=== PATIENT | female | born 2005 | race Caucasian/White ===

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

== ENCOUNTER 2024-06-10 17:34 | Emergency (ER) | payer OTHER, SELFPAY ==
--- OUTSIDE RECORDS SUMMARY | 2024-06-10 17:36 | XMS_ITS | Referral Summary ---
Author Organization [facility] Address [address] [place] [address] Phone Care Team Providers Care Trimmer Tailer Name Role Phone Mile Hayes MD Primary Care Provid er Encounters Date Type Department Care Team Description 06/09/2024 10:05 AM SALVAGE REPAIRER - 06/09/2024 11:59 PM SALVAGE REPAIRER Hospital Encounter [facility] Pediatric Pulmonology [facility] [address] [place] [id number] Moderate persistent asthma, uncomplicated Discharge Disposition: Discharge to home or self care 06/09/2024 10:30 AM SALVAGE REPAIRER Office Visit [facility] Pediatric Allergy and Pulmonology [facility] 2nd [place] [address] [place] [phone] Sabine Nova MD Moderate persistent asthma, uncomplicated (Primary Dx); Chronic allergic conjunctivitis; Allergic rhinitis due to dust mite 03/13/2024 Telephone [facility] Pediatric Allergy and Pulmonology [facility] 2nd [place] [address] [place] [phone] Sanjeev Valdez from Last 3 Months Allergies Active Allergy Reactions Criticality Noted Date Comments Penicillins Prednisone Dizziness Low 04/19/2023 Sulfa (Sulfonamide Antibiotics) Azithromycin Dizziness Low 06/09/2024 Took one pill made pt very dizzy, did not complete full 5 day dosage Medications inhalational spacing device spacer 1 inhalation spacer device with adult size mask to use with MDI 1 each 06/03/202 1 Active olopatadine 0.6 % spray,non-aero janelle Give 1 spray 1-2 times daily as needed for congestion 30.5 g 1 2 Active mupirocin (BACTROBAN) 2 % ointment Apply topically 3 (three) times a day as needed (to the finger wound) 22 g 3 Active predniSONE (DELTASONE) 20 mg tabletIndicati ons:Contact Dermatitis Take 3 tablets daily for 3 days then 2 tablets daily for 3 days then 1 tablet daily for 3 days 18 tablet 3 Active Additional Information Patient not taking.Reported on 06/09/2024 montelukast (SINGULAIR) 10 mg tabletIndicati ons:Moderate persistent asthma, uncomplicated, Allergic rhinitis due to dust mite Take 1 tablet (10 mg total) by mouth nightly 30 tablet 11 4 Active triamcinolone (KENALOG) 0.1 % cream Apply topically 2 (two) times a day 4 Active azelastine (ASTELIN) 137 mcg (0.1 %) nasal sprayIndicatio ns:Moderate persistent asthma, uncomplicated, Allergic rhinitis due to dust mite Administer 2 sprays into each nostril daily Use in each nostril as directed 90 mL 3 5 09/08/19 25 Active budesonide-for moteroL (Symbicort) 80-4.5 mcg/actuation inhaler Use 2 puffs once daily and 1-2 puffs every 4 hours as needed max 12 puffs per day. Rinse mouth with water after use. Do not swallow. 6 each 2 5 Active cetirizine (ZyrTEC) 10 mg tablet Take 1 tablet (10 mg total) by mouth daily 90 tablet 2 5 09/08/19 25 Active fluticasone propionate (FLONASE) 50 mcg/actuation nasal sprayIndicatio ns:Moderate persistent asthma, uncomplicated, Allergic rhinitis due to dust mite Administer 2 sprays into each nostril daily 3 each 2 5 Active albuterol HFA (Ventolin HFA) 90 mcg/actuation inhalerIndicat ions:Bronchosp asm Prevention Inhale 2 puffs every 4 (four) hours as needed for wheezing 4 each 2 5 09/08/19 25 Active albuterol HFA (Ventolin HFA) 90 mcg/actuation inhalerIndicat ions:Bronchosp asm Prevention Inhale 2 puffs every 4 (four) hours as needed for wheezing 2 each 1 3 06/10/19 25 Discontin ued(Reord er) budesonide-for moteroL (Symbicort) 80-4.5 mcg/actuation inhaler Use 2 puffs once daily and 1-2 puffs every 4 hours as needed max 12 puffs per day. Rinse mouth with water after use. Do not swallow. 2 each 5 4 06/10/19 25 Discontin ued(Reord er) fluticasone propionate (FLONASE) 50 mcg/actuation nasal sprayIndicatio ns:Moderate persistent asthma, uncomplicated, Allergic rhinitis due to dust mite Administer 2 sprays into each nostril daily 1 each 11 4 06/10/19 25 Discontin ued(Reord er) cetirizine (ZyrTEC) 10 mg tablet Take 1 tablet (10 mg total) by mouth daily 30 tablet 2 4 06/10/19 25 Discontin ued(Reord er) azelastine (ASTELIN) 137 mcg (0.1 %) nasal sprayIndicatio ns:Moderate persistent asthma, uncomplicated, Allergic rhinitis due to dust mite ADMINISTER 2 SPRAYS INTO EACH NOSTRIL DAILY USE IN EACH NOSTRIL DIRECTED 30 mL 11 4 06/10/19 25 Discontin ued(Reord er) Active Problems Problem Noted Date Diagnosed Date Allergic rhinitis due to cats 10/11/2017 Seasonal allergic rhinitis due to pollen 018 Allergic rhinitis due to mold 10/11/2017 Allergic rhinitis due to dust mite 10/11/2017 Allergy to cockroaches 10/11/2017 Moderate persistent asthma, uncomplicated 2017 Moderate persistent asthma without complication 01/20/2017 Eczema 07/22/2016 Dysuria 02/20/2015 Chronic cystitis 02/20/2015 Chronic constipation 02/20/2015 Incomplete emptying of bladder 02/20/2015 Perineal pain 02/20/2015 Chronic allergic conjunctivitis 09/01/2013 Urticaria, unspecified 12/30/2012 Resolved Problems Problem Noted Date Diagnosed Date Resolved Date Mild persistent asthma without complication 10/04/2007 07/19/2018 Hay fever 10/04/2007 08/08/2019 Social History Tobacco Use Types Packs/Day Years Used Date Smoking Tobacco: Never Smokeless Tobacco: Never Tobacco Cessation:Counseling Given: Yes Comments Unknown Sex and Gender Information Value Date Recorded Sex Assigned at Not on file Legal Sex Female 1:37 AM SALVAGE REPAIRER Gender Identity Not on file Sexual Orientation Not on file Last Filed Vital Signs Vital Sign Reading Time Taken Comments Blood Pressure 114/70 06/09/2024 10:33 AM SALVAGE REPAIRER Pulse 81 06/09/2024 10:33 AM SALVAGE REPAIRER Temperature 36.7 C (98.1 F) 06/09/2024 10:33 AM SALVAGE REPAIRER Respiratory Rate 16 06/09/2024 10:3 3 AM SALVAGE REPAIRER Oxygen Saturation 97% 10/15/2023 10: 07 AM CDT Inhaled Oxygen Concentration - - Weight 76.5 kg (168 lb 10.4 oz) 025 10:33 AM SALVAGE REPAIRER Height 164.4 cm (5' 4.72 ) 06/09/2024 1 0:33 AM SALVAGE REPAIRER Body Mass Index 28.31 06/09/2024 10:33 AM SALVAGE REPAIRER Plan of Treatment Not on file Procedures Procedure Name Priority Date/Time Associated Diagnosis Comments PULMONARY FUNCTION TEST (PFT) Routine 06/09/2024 10:27 AM SALVAGE REPAIRER Moderate persistent asthma, uncomplicated from Last 3 Months Results * Pulmonary Function Test - (06/09/2024 10:27 AM SALVAGE REPAIRER) FVC %PRE PRED 109 % [facility] FEV1 %PRE PRED 105 % [facility] BOR91-05% %PRE PRED 84 % [facility] Anatomical Region Laterality Modality PFT 06/09/2024 10:1 9 AM SALVAGE REPAIRER Narrative 06/09/2024 2:18 PM SALVAGE REPAIRER PFT performed at:->[facility] Sabine Nova MD PFT ORDERABLES Final R esult from Last 3 Months Insurance [facility] CMR Care Teams Trimmer Tailer Relationship Specialty Start Date End Date Feldott-Robert, Mile C., MD [address] [facility] [address] PCP - General 07/22/16
--- OUTSIDE RECORDS SUMMARY | 2024-06-10 17:36 | XMS_ITS | Clinical Summary ---
Author Organization [facility] Address [address] [place] [address] Care Team Providers Care Clerical Assistant Name Role Phone Mile Friedman MD Primary Care Provider Allergies Active Allergy Reactions Criticality Noted Date Comments Penicillins Anxiety Low 04/19/2023 Prednisone Dizziness 04/19/2023 Medications AZELASTINE 137 MCG/SPRAY nasal spray ADMINISTER 2 SPRAYS INTO EACH NOSTRIL DAILY USE IN EACH NOSTRIL DIRECTED 3 Active budesonide-form oterol (SYMBICORT) 80-4.5 MCG/ACT inhaler PLEASE SEE ATTACHED FOR DETAILED DIRECTIONS 3 Active cetirizine (ZYRTEC) 5 MG tablet Take 1 tablet (5 mg total) by mouth daily. Active methylPREDNISol one, LUCIAN, (MEDROL DOSEPAK) 4 MG tabletIndicatio ns:Sore throat 6 TABLETS ON DAY ONE, 5 TABLETS DAY TWO, 4 TABLETS DAY THREE, 3 TABLETS DAY FOUR, 2 TABLETS DAY FIVE, AND 1 TABLET DAY SIX. Patient aware of allergy 1 each 4 Active Additional Information Patient not taking.Reported on 03/22/2024 triamcinolone (KENALOG) 0.1 % cream Apply topically 2 (two) times daily. 4 Active fluticasone propionate (FLONASE) 50 MCG/ACT nasal spray 2 sprays by Nasal route daily. [place] Into Each Nostril 4 Active montelukast (SINGULAIR) 10 MG tablet Take 1 tablet (10 mg total) by mouth nightly. 4 Active Active Problems No known active problems Encounters Date Type Department Care Team Description 03/22/2024 8:40 AM CROSS TIE TURNER Office Visit [facility] [place] [address] [place] [address] Marissa Paulson PA Cough (Congestion-phlegm to throat-sinus pressure-x 1 month) 03/22/2024 Travel from Last 3 Months Immunizations Name Administration Dates Next Due DTaP (Daptacel) 08/30/2009, 6,06/11/2004,04/14/2004, HPV GARDASIL 9-VALENT 04/09/2016,12/11/2015,08/2015 Hepatitis A (Havrix [address]) 06/28/2006, 006 Hepatitis B Pediatric 09/10/2004,01/23/2004,12/04 Hib (Omni-Hib) 05/19/2006, 5,06/11/2004,04/14/2004, Hib (PedvaxHIB)3 Dose 02/15/2014 Influenza (Generic) 01/02/2013, 2,01/08/2011,01/29/2010,,12/26/2008,01/18/2008,01/06/2007,01/03,02/20/2005,01/21/2005 Influenza Adult (Generic) 02/01/2023,,02/06/2021,01/30/2020,,02/03/2018,02/10/2017,01/29/2016,01/03,02/15/2014 MMR (MMRII) 08/30/2009,12/22/2004 Meningococcal (Menactra) 01/30/2020,10/08/2015 Pneumococcal (Prevnar 13) 05/19/2006,,06/11/2004,04/14/2004, Polio IPV (Ipol) 08/30/2009,12/22/2004, 5,02/11/2004 Tdap (Generic) 10/08/2015 Varicella (Varivax) 08/30/2009,03/16/2005 Social History Tobacco Use Types Packs/Day Years Used Date Smoking Tobacco: Never Passive Smoke Exposure: Never Smokeless Tobacco: Never Tobacco Cessation:Counseling Given: No Alcohol Use Standard Drinks/Week Comments Not Currently 0 (1 standard drink = 0.6 oz pur e alcohol) PHQ-2 Answer Date Recorded Patient Health Questionnaire-2 Score 0 04/19/2023 Comments Unknown Sex and Gender Information Value Date Recorded Sex Assigned at Not on file Legal Sex Female 7:59 PM CDT Gender Identity Not on file Sexual Orientation Not on file Last Filed Vital Signs Vital Sign Reading Time Taken Comments Blood Pressure 110/74 03/22/2024 8:40 AM CROSS TIE TURNER Pulse - - Temperature 36.3 C (97.4 F) 03/22/2024 8:40 AM CROSS TIE TURNER Respiratory Rate 20 03/22/2024 8:40 AM CROSS TIE TURNER Oxygen Saturation 100% 03/22/2024 8:40 AM CROSS TIE TURNER Inhaled Oxygen Concentration - - Weight 78.9 kg (174 lb) 03/22/2024 8:40 AM CROSS TIE TURNER Height 162.6 cm (5' 4 ) 03/22/2024 8:40 AM CROSS TIE TURNER Body Mass Index 29.87 03/22/2024 8:40 AM CROSS TIE TURNER Plan of Treatment Health Maintenance Due Date Last Done Comments Annual Physical 12/17/2006 Meningococcal B Vaccine (1 of 2 - Standard) 2019 Hepatitis C 12/17/2021 COVID-19 Vaccine (1 - season) 2023 Influenza Adult (#1) 2024 02/01/2023, 01/26/2022, 02/06/2021, Additional history exists PHQ-2 (Physician Cheesh-Na) 04/05/2024 04/19/2023 PHQ-2 (Physician Cheesh-Na) 04/19/2024 04/19/2023 DTaP, Tdap and Td Vaccines (7 - Td or Tdap) 10/07/2025 10/08/2015, 08/30/2009, 06/15/2005, Additional history exists Hepatitis B Vaccines Completed 09/10/2004, 01/23/2004, 2003 Pneumococcal Vaccine: Pediatrics (0 to 5 Years) and At-Risk Patients (6 to 64 Years) Completed 05/19/2006, 12/22/2004, 06/11/2004, Additional history exists HPV Vaccines Completed 04/09/2016, 10/2015, 10/08/2015 Meningococcal Vaccine Completed 01/30/2020, 016 RSV Immunizations Under 20 Months Aged Out No longer eligible based on patient's age to complete this topic Insurance [employer] Care Teams Clerical Assistant Relationship Specialty Start Date End Date Mile Friedman MD [address] [place] [address] PCP - General PEDIATRICS 01/10/19
--- OUTSIDE RECORDS SUMMARY | 2024-06-10 17:36 | XMS_ITS | Encounter Summary ---
Author Organization [facility] Address [address] [place] [address] Phone Care Team Providers Care Scrubber System Attendant Name Role Phone Mile Hayes MD Primary Care Provid er Encounter Details Date Type Department Care Team (Late st Contact Info) Description 01/21/2017 Orders Only [facility] ProviderSamantha MD [address] [place], [place] [id number] Social History Tobacco Use Types Packs/Day Years Used Date Smoking Tobacco: Never Comments Unknown Sex and Gender Information Value Date Recorded Sex Assigned at Not on file Legal Sex Female 1:37 AM RETOUCHING OPERATOR Gender Identity Not on file Sexual Orientation Not on file documented as of this encounter Plan of Treatment Not on file documented as of this encounter Procedures Procedure Name Priority Date/Time Associated Diagnosis Comments PULMONARY - RESULT SCAN 01/21/2017 5:03 PM CDT documented in this encounter Results * PULMONARY - RESULT SCAN (01/21/2017 5:03 PM CDT) Anatomical Region Laterality Modality Other Narrative 01/21/2017 5:03 PM CDT Ordered by an unspecified provider. Historical Provider Final Res ult documented in this encounter Visit Diagnoses Not on filedocumented in this encounter Care Teams Scrubber System Attendant Relationship Specialty Start Date End Date Mile Hayes MD [address] [place] [address] PCP - General 07/22/16 documented as of this encounter
--- OUTSIDE RECORDS SUMMARY | 2024-06-10 17:36 | XMS_ITS | Encounter Summary ---
Author Organization [facility] Address [address] [place] [address] Phone Care Team Providers Care Data Report Analyst Name Role Phone Mile Hayes MD Primary Care Provid er Encounter Details Date Type Department Care Team (Late st Contact Info) Description 07/22/2016 Orders Only [facility] ProviderSamantha MD [address] [place] [id number] Social History Tobacco Use Types Packs/Day Years Used Date Smoking Tobacco: Never Assessed Comments Unknown Sex and Gender Information Value Date Recorded Sex Assigned at Not on file Legal Sex Female 1:37 AM RELEASE SPECIALIST Gender Identity Not on file Sexual Orientation Not on file documented as of this encounter Plan of Treatment Not on file documented as of this encounter Procedures Procedure Name Priority Date/Time Associated Diagnosis Comments PULMONARY - RESULT SCAN 07/22/2016 12:24 PM CDT documented in this encounter Results * PULMONARY - RESULT SCAN (07/22/2016 12:24 PM CDT) Anatomical Region Laterality Modality Other Narrative 07/22/2016 12:24 PM CDT Ordered by an unspecified provider. Historical Provider Final Res ult documented in this encounter Visit Diagnoses Not on filedocumented in this encounter Care Teams Data Report Analyst Relationship Specialty Start Date End Date Mile Hayes MD [address] [place] [address] PCP - General 07/22/16 documented as of this encounter
--- OUTSIDE RECORDS SUMMARY | 2024-06-10 17:36 | XMS_ITS | Encounter Summary ---
Author Organization [facility] Address [address] [place] [address] Phone Care Team Providers Care Greenstone Polisher Operator Name Role Phone Mile Hayes MD Primary Care Provid er Reason for Referral * (Routine) - Closed Specialty Diagnoses / Procedures Referred By Contac t Referred To Contact Diagnoses Moderate persistent asthma without complication Procedures Pulmonary Function Test -[facility]; Spirometry Sabine Nova MD [address] [address] Phone: tel: fax: Referral ID Status Reason Start Date Expiration Date Visits Re quested Visits Authorized [id number] Closed 10/03/2021 11/02/2022 1 1 Reason for Visit * (Routine) - Closed Specialty Diagnoses / Procedures Referred By Contac t Referred To Contact Diagnoses Moderate persistent asthma without complication Procedures Pulmonary Function Test -[facility]; Spirometry Sabine Nova MD [address] [address] Phone: tel: fax: Referral ID Status Reason Start Date Expiration Date Visits Re quested Visits Authorized [id number] Closed 10/03/2021 11/02/2022 1 1 Encounter Details Date Type Department Care Team (Latest Contact Info) Description 10/09/2021 2:00 PM CDT Hospital Encounter [facility] Pediatric Pulmonology [address] [facility] 2nd [address] [place] [address] Moderate persistent asthma without complication Social History Tobacco Use Types Packs/Day Years Used Date Smoking Tobacco: Never Smokeless Tobacco: Never Comments Unknown Sex and Gender Information Value Date Recorded Sex Assigned at Not on file Legal Sex Female 1:37 AM REGIONAL SALES ASSOCIATE Gender Identity Not on file Sexual Orientation Not on file documented as of this encounter Plan of Treatment Not on file documented as of this encounter Procedures Procedure Name Priority Date/Time Associated Diagnosis Comments PULMONARY FUNCTION TEST (PFT) Routine 10/09/2021 2:09 PM CDT Moderate persistent asthma without complication documented in this encounter Results * Pulmonary Function Test - (10/09/2021 2:09 PM CDT) FVC %PRE PRED 110 % [facility] FEV1 %PRE PRED 101 % [facility] TKA91-54% %PRE PRED 80 % [facility] Anatomical Region Laterality Modality PFT 10/09/2021 2:09 PM CDT Narrative 10/09/2021 4:57 PM CDT PFT performed at:->[facility] Procedure:->Spirometry us Sabine Nova MD PFT ORDERABLES Final R esult documented in this encounter Visit Diagnoses Diagnosis Moderate persistent asthma without complication documented in this encounter Care Teams Greenstone Polisher Operator Relationship Specialty Start Date End Date Mile Hayes MD [address] [place] [address] PCP - General 07/22/16 documented as of this encounter
--- OUTSIDE RECORDS SUMMARY | 2024-06-10 17:36 | XMS_ITS | Encounter Summary ---
Author Organization [facility] Address [address] [place] [address] Phone Care Team Providers Care Diver Assistant Name Role Phone Mile Hayes MD Primary Care Provid er Reason for Visit * Pediatric (Routine) - Authorized Specialty Diagnoses / Procedures Referred By Contac t Referred To Contact Diagnoses Moderate persistent asthma, uncomplicated Allergic rhinitis due to dust mite Allergic rhinitis due to mold Seasonal allergic rhinitis due to pollen Allergic rhinitis due to cats Chronic allergic conjunctivitis Allergy to cockroaches Mile Hayes MD [facility] [place] [address] Phone: tel: fax: [facility] (All Locations) Referral ID Status Reason Start Date Expiration Date Visits Requested Visits Authorized [id number] Authorized Continuity of Care 09/30/2023 10/29/2024 4 4 Encounter Details Date Type Department Care Team (Late st Contact Info) Description 06/09/2024 10:30 AM BAND AND CUFF CUTTER Office Visit [facility] Pediatric Allergy and Pulmonology [facility] 2nd [place] [address] [place] [phone] Sabine Nova MD [address] [place] [address] [place] [address] Moderate persistent asthma, uncomplicated (Primary Dx); Chronic allergic conjunctivitis; Allergic rhinitis due to dust mite Social History Tobacco Use Types Packs/Day Years Used Date Smoking Tobacco: Never Smokeless Tobacco: Never Comments Unknown Sex and Gender Information Value Date Recorded Sex Assigned at Not on file Legal Sex Female 1:37 AM BAND AND CUFF CUTTER Gender Identity Not on file Sexual Orientation Not on file documented as of this encounter Last Filed Vital Signs Vital Sign Reading Time Taken Comments Blood Pressure 114/70 06/09/2024 10:33 AM BAND AND CUFF CUTTER Pulse 81 06/09/2024 10:33 AM BAND AND CUFF CUTTER Temperature 36.7 C (98.1 F) 06/09/2024 10:33 AM BAND AND CUFF CUTTER Respiratory Rate 16 06/09/2024 10:3 3 AM BAND AND CUFF CUTTER Oxygen Saturation - - Inhaled Oxygen Concentration - - Weight 76.5 kg (168 lb 10.4 oz) 025 10:33 AM BAND AND CUFF CUTTER Height 164.4 cm (5' 4.72 ) 06/09/2024 1 0:33 AM BAND AND CUFF CUTTER Body Mass Index 28.31 06/09/2024 10:33 AM BAND AND CUFF CUTTER documented in this encounter Patient Instructions * Patient Instructions* Sabine Nova MD - 06/09/2024 10:30 AM BAND AND CUFF CUTTER Vocal cord dysfunction exercises 1. Breathe in through nose and gently out on ???silent who?? or ???s?? . Repeat until feeling better. 2. Read aloud gently. (Older child read puzzles and come up with answers - distraction is levine.) 3. Count aloud backwards gently, in rhythm (Younger kids just backwards from easy number. Older kids backwards by 2s or 3s from obtuse number). 4. Suck on a lozenge/candy 5. Handheld fan to blow gentle air in face. 6. Tighten all body parts from shoulders down to toes one part at a time til body is tight then relax each part in reverse order until relaxed. Breathe in through nose and out through mouth. 7. Guided imagery - describing relaxing or favorite place. AND CUFF CUTTER documented in this encounter Ordered Prescriptions Prescription Sig Dispense Quantity Refills Last Filled Start Date End Date albuterol HFA (Ventolin HFA) 90 mcg/actuation inhalerIndications :Bronchospasm Prevention Inhale 2 puffs every 4 (four) hours as needed for wheezing 4 each 2 06/09/2024 5 fluticasone propionate (FLONASE) 50 mcg/actuation nasal sprayIndications:M oderate persistent asthma, uncomplicated,Giuseppe rgic rhinitis due to dust mite Administer 2 sprays into each nostril daily 3 each 2 06/09/2024 cetirizine (ZyrTEC) 10 mg tablet Take 1 tablet (10 mg total) by mouth daily 90 tablet 2 06/09/2024 budesonide-formote roL (Symbicort) 80-4.5 mcg/actuation inhaler Use 2 puffs once daily and 1-2 puffs every 4 hours as needed max 12 puffs per day. Rinse mouth with water after use. Do not swallow. 6 each 2 06/09/2024 azelastine (ASTELIN) 137 mcg (0.1 %) nasal sprayIndications:M oderate persistent asthma, uncomplicated,Giuseppe rgic rhinitis due to dust mite Administer 2 sprays into each nostril daily Use in each nostril as directed 90 mL 3 06/09/2024 5 documented in this encounter Plan of Treatment Not on file documented as of this encounter Visit Diagnoses Diagnosis Moderate persistent asthma, uncomplicated- Primary Chronic allergic conjunctivitis Other chronic allergic conjunctivitis Allergic rhinitis due to dust mite documented in this encounter Discontinued Medications Medication Sig Discontinue Reason Start Date End Da te albuterol HFA (Ventolin HFA) 90 mcg/actuation inhalerIndications:Bro nchospasm Prevention Inhale 2 puffs every 4 (four) hours as needed for wheezing Reorder 12/11/2022 06/09/2024 budesonide-formoteroL (Symbicort) 80-4.5 mcg/actuation inhaler Use 2 puffs once daily and 1-2 puffs every 4 hours as needed max 12 puffs per day. Rinse mouth with water after use. Do not swallow. Reorder 10/15/2023 06/09/2024 fluticasone propionate (FLONASE) 50 mcg/actuation nasal sprayIndications:Moder ate persistent asthma, uncomplicated,Allergic rhinitis due to dust mite Administer 2 sprays into each nostril daily Reorder 10/15/2023 06/09/2024 cetirizine (ZyrTEC) 10 mg tablet Take 1 tablet (10 mg total) by mouth daily Reorder 10/15/2023 06/09/2024 azelastine (ASTELIN) 137 mcg (0.1 %) nasal sprayIndications:Moder ate persistent asthma, uncomplicated,Allergic rhinitis due to dust mite ADMINISTER 2 SPRAYS INTO EACH NOSTRIL DAILY USE IN EACH NOSTRIL DIRECTED Reorder 03/13/2024 06/09/2024 documented as of this encounter Historical Medications * This list may reflect changes made after this encounter. triamcinolone (KENALOG) 0.1 % cream Apply topically 2 (two) times a day 10/19/2023 added in this encounter Care Teams Diver Assistant Relationship Specialty Start Date End Date Mile Hayes MD [address] [place] [address] PCP - General 07/22/16 documented as of this encounter
--- OUTSIDE RECORDS SUMMARY | 2024-06-10 17:36 | XMS_ITS | Clinical Summary ---
Author Organization [facility] Address [address] [place] [address] Phone Care Team Providers Care Cylinder Machine Operator Name Role Phone Mile Hayes MD Primary Care Provid er Allergies Active Allergy Reactions Criticality Noted Date Comments Penicillins Prednisone Dizziness Low 04/19/2023 Sulfa (Sulfonamide Antibiotics) Azithromycin Dizziness Low 06/09/2024 Took one pill made pt very dizzy, did not complete full 5 day dosage Medications inhalational spacing device spacer 1 inhalation spacer device with adult size mask to use with MDI 1 each 1 Active olopatadine 0.6 % spray,non-aero janelle [...] complication 10/04/2007 07/19/2018 Hay fever 10/04/2007 08/08/2019 Encounters Date Type Department Care Team Description 06/09/2024 10:30 AM RESAW FEEDER Office Visit [facility] Pediatric Allergy and Pulmonology [address] [place] [address] Sabine Nova MD Moderate persistent asthma, uncomplicated (Primary Dx); Chronic allergic conjunctivitis; Allergic rhinitis due to dust mite 06/09/2024 10:05 AM RESAW FEEDER - 06/09/2024 11:59 PM RESAW FEEDER Hospital Encounter [facility] Pediatric Pulmonology [address] [address] Moderate persistent asthma, uncomplicated Discharge Disposition: Discharge to home or self care 03/13/2024 Telephone [facility] Pediatric Allergy and Pulmonology [address] [place] [address] Sanjeev Valdez from Last 3 Months Family History Medical History Relation Name Comments Nephrolithiasis Mother Family histo ry of kidney stones - (Added by TW Conv) Urinary tract infection Mother UTI (urinary tract infection), bacterial - (Added by TW Conv) Allergic rhinitis Sister Family his tory of allergic rhinitis - (Added by TW Conv) Asthma Sister Family history of asthma - (Added by TW Conv) Relation Name Status Comments Mother Sister Social History Tobacco Use Types Packs/Day Years Used Date Smoking Tobacco: Never Smokeless Tobacco: Never Tobacco Cessation:Counseling Given: Yes Comments Unknown Sex and Gender Information Value Date Recorded Sex Assigned at Not on file Legal Sex Female 1:37 AM RESAW FEEDER Gender Identity Not on file Sexual Orientation Not on file Obstetrics History Last Filed Vital Signs Vital Sign Reading Time Taken Comments Blood Pressure 114/70 06/09/2024 10:33 AM RESAW FEEDER Pulse 81 06/09/2024 10:33 AM RESAW FEEDER Temperature 36.7 C (98.1 F) 06/09/2024 10:33 AM RESAW FEEDER Respiratory Rate 16 06/09/2024 10:3 3 AM RESAW FEEDER Oxygen Saturation 97% 10/15/2023 10: 07 AM CDT Inhaled Oxygen Concentration - - Weight 76.5 kg (168 lb 10.4 oz) 025 10:33 AM RESAW FEEDER Height 164.4 cm (5' 4.72 ) 06/09/2024 1 0:33 AM RESAW FEEDER Body Mass Index 28.31 06/09/2024 10:33 AM RESAW FEEDER Plan of Treatment Health Maintenance Due Date Last Done Comments Depression Screening 2003 Hepatitis C Screening 2003 Pneumococcal vaccine <65 (1 of 1 - PPSV23) 12/17/2009 05/19/2006, 12/22/2004, 06/11/2004, Additional history exists Meningococcal B Vaccine (1 o f 2 - Standard) 2019 Regular Well Visit/Exam 18-64 12/17/2021 DTaP/Tdap/Td Vaccine (7 - Td or Tdap) 10/07/2025 10/08/2015, 08/30/2009, 06/15/2005, Additional history exists Hepatitis B Screening Completed 09/10/2004 , 01/23/2004, 2003 Varicella Vaccines Completed 08/30/2009, 03/16/2005 HPV Vaccines Completed 04/09/2016, 10/2015, 10/08/2015 Meningococcal Vaccine Completed 01/30/2020, 016 Influenza Vaccine Completed 02/21/2024, , 01/26/2022, Additional history exists Procedures Procedure Name Priority Date/Time Associated Diagnosis Comments PULMONARY FUNCTION TEST (PFT) Routine 06/09/2024 10:27 AM RESAW FEEDER Moderate persistent asthma, uncomplicated from Last 3 Months Results * Pulmonary Function Test - (06/09/2024 10:27 AM RESAW FEEDER) FVC %PRE PRED 109 % [facility] FEV1 %PRE PRED 105 % [facility] EMD98-98% %PRE PRED 84 % [facility] Anatomical Region Laterality Modality PFT 06/09/2024 10:1 9 AM RESAW FEEDER Narrative 06/09/2024 2:18 PM RESAW FEEDER PFT performed at:->[facility] us Sabine Nova MD PFT ORDERABLES Final R esult from Last 3 Months Insurance [facility] Care Teams Cylinder Machine Operator Relationship Specialty Start Date End Date Mile Hayes MD [address] [facility] [place] [address] PCP - General 07/22/16
--- OUTSIDE RECORDS SUMMARY | 2024-06-10 17:36 | XMS_ITS | Encounter Summary ---
Author Organization [facility] Address [address] [place] [address] Phone Care Team Providers Care Payment Analyst Name Role Phone Mile Hayes MD Primary Care Provid er Reason for Referral * Procedure (Routine) - Closed Specialty Diagnoses / Procedures Referred By Contac t Referred To Contact Diagnoses Moderate persistent asthma, uncomplicated Procedures Pulmonary Function Test -[facility]; Spirometry Sabine Nova MD [address] [address] Phone: tel: fax: Referral ID Status Reason Start Date Expiration Date Visits Re quested Visits Authorized [id number] Closed 10/15/2023 11/13/2024 1 1 RPRETER DEAF Reason for Visit * Procedure (Routine) - Closed Specialty Diagnoses / Procedures Referred By Contac t Referred To Contact Diagnoses Moderate persistent asthma, uncomplicated Procedures Pulmonary Function Test -[facility]; Spirometry Sabine Nova MD [address] [address] Phone: tel: fax: Referral ID Status Reason Start Date Expiration Date Visits Re quested Visits Authorized [id number] Closed 10/15/2023 11/13/2024 1 1 Encounter Details Date Type Department Care Team (Latest Contact Info) Description 06/09/2024 10:05 AM INTERPRETER DEAF - 06/09/2024 11:59 PM INTERPRETER DEAF Hospital Encounter [facility] Pediatric Pulmonology [facility] [address] [place] [address] Moderate persistent asthma, uncomplicated Discharge Disposition: Discharge to home or self care Social History Tobacco Use Types Packs/Day Years Used Date Smoking Tobacco: Never Smokeless Tobacco: Never Comments Unknown Sex and Gender Information Value Date Recorded Sex Assigned at Not on file Legal Sex Female 1:37 AM INTERPRETER DEAF Gender Identity Not on file Sexual Orientation Not on file documented as of this encounter Medications at Time of Discharge albuterol HFA (Ventolin HFA) 90 mcg/actuation inhalerIndicatio ns:Bronchospasm Prevention Inhale 2 puffs every 4 (four) hours as needed for wheezing 4 each 2 06/09/2024 5 azelastine (ASTELIN) 137 mcg (0.1 %) nasal sprayIndications :Moderate persistent asthma, uncomplicated,Al lergic rhinitis due to dust mite Administer 2 sprays into each nostril daily Use in each nostril as directed 90 mL 3 06/09/2024 5 budesonide-formo teroL (Symbicort) 80-4.5 mcg/actuation inhaler Use 2 puffs once daily and 1-2 puffs every 4 hours as needed max 12 puffs per day. Rinse mouth with water after use. Do not swallow. 6 each 2 06/09/2024 cetirizine (ZyrTEC) 10 mg tablet Take 1 tablet (10 mg total) by mouth daily 90 tablet 2 06/09/2024 5 fluticasone propionate (FLONASE) 50 mcg/actuation nasal sprayIndications :Moderate persistent asthma, uncomplicated,Al lergic rhinitis due to dust mite Administer 2 sprays into each nostril daily 3 each 2 06/09/2024 inhalational spacing device spacer 1 inhalation spacer device with adult size mask to use with MDI 1 each 09/05/2020 montelukast (SINGULAIR) 10 mg tabletIndication s:Moderate persistent asthma, uncomplicated,Al lergic rhinitis due to dust mite Take 1 tablet (10 mg total) by mouth nightly 30 tablet 11 10/15/2023 mupirocin (BACTROBAN) 2 % ointment Apply topically 3 (three) times a day as needed (to the finger wound) 22 g 12/11/2022 olopatadine 0.6 % spray,non-aeroso l Give 1 spray 1-2 times daily as needed for congestion 30.5 g 1 07/25/2021 predniSONE (DELTASONE) 20 mg tabletIndication s:Contact Dermatitis Take 3 tablets daily for 3 days then 2 tablets daily for 3 days then 1 tablet daily for 3 days 18 tablet 12/21/2022 triamcinolone (KENALOG) 0.1 % cream Apply topically 2 (two) times a day 10/19/2023 documented as of this encounter Discharge Disposition Disposition Code Departure Means Destination Discharge to home or self care documented in this encounter Plan of Treatment Not on file documented as of this encounter Procedures Procedure Name Priority Date/Time Associated Diagnosis Comments PULMONARY FUNCTION TEST (PFT) Routine 06/09/2024 10:27 AM INTERPRETER DEAF Moderate persistent asthma, uncomplicated documented in this encounter Results * Pulmonary Function Test - (06/09/2024 10:27 AM INTERPRETER DEAF) FVC %PRE PRED 109 % [facility] FEV1 %PRE PRED 105 % [facility] [id number]% %PRE PRED 84 % [facility] Anatomical Region Laterality Modality PFT 06/09/2024 10:1 9 AM INTERPRETER DEAF Narrative 06/09/2024 2:18 PM INTERPRETER DEAF PFT performed at:->[facility] Sabine Nova MD PFT ORDERABLES Final R esult documented in this encounter Visit Diagnoses Diagnosis Moderate persistent asthma, uncomplicated documented in this encounter Care Teams Payment Analyst Relationship Specialty Start Date End Date Mile Hayes MD [address] [place] [address] PCP - General 07/22/16 documented as of this encounter
[2024-06-10 17:47] VITALS: BP 120/69; PULSE 85; RESP 16; TEMP 36.8; O2SAT 100
[2024-06-10 17:55] LABS: EDSTREPNEGPOS1 Negative (Negative)
--- NOTE | 2024-06-10 17:59 | ED_ITS ---
HPI - URI/Sore Throat General Chief Complaint: Upper Respiratory Infection Stated Complaint: cold like Source: patient Mode of arrival: ambulatory Limitations: no limitations History of Present Illness HPI Narrative: 18-year-old female presents to [facility] complaints of sore throat since this morning. Patient also reports mild postnasal drip the past few days. Patient has been taking [id number] ibuprofen with minimal relief. Patient denies fever, body aches, chills, nausea, vomiting, diarrhea, cough, runny nose or nasal congestion. Patient denies sick contacts. Patient denies recent travel. Patient is nonsmoker. MD elicited complaint: sore throat Onset (ago): hour(s) (8) Consistency: constant Able to tolerate fluids by mouth: Yes Exacerbating factors: swallowing Relieving factors: nothing Treatments prior to arrival: ibuprofen Related Data Home Medications ?Medication ?Instructions ?Recorded ?Confirmed ?Last Taken ?Type azelastine 137 mcg (0.1 %) nasal 1 spray intranasal Q12H 06/27/23 01/20/24 Unknown History spray budesonide-formoterol HFA 80 2 puff inhalation Q12H 06/27/23 01/20/24 Unknown History mcg-4.5 mcg/actuation aerosol inhaler (Symbicort) cetirizine 10 mg tablet (Zyrtec) 10 mg PO DAILY 06/27/23 01/20/24 Unknown History fluticasone propionate 50 2 spray intranasal DAILY 06/27/23 01/20/24 Unknown History mcg/actuation nasal spray,suspension montelukast 10 mg tablet 10 mg PO DAILY 06/27/23 01/20/24 Unknown History (Singulair) multivitamin (Daily Multi-Vitamin 1 tablet PO DAILY 06/27/23 01/20/24 Unknown History tablet) Allergies Allergy/AdvReac Type Severity Reaction Status Date / Time Penicillins Allergy Mild RASH Verified 06/10/24 17:49 azithromycin AdvReac Intermediate Dizziness Verified 06/10/24 17:49 Sulfa (Sulfonamide AdvReac Intermediate Dizziness Verified 06/10/24 18:00 Antibiotics) Review of Systems Constitutional: Constitutional: Denies chills, Denies fatigue, Denies fever(s) and Denies weakness ENT: Denies vertigo, Denies dizziness, Denies epistaxis, Denies nasal congestion and Reports sore throat Cardiovascular: Cardiovascular: Denies chest pain Respiratory: Respiratory: Denies cough, Denies dyspnea and Denies wheezing Gastrointestinal: Gastrointestinal: Denies diarrhea, Denies nausea and Denies vomiting Musculoskeletal: Musculoskeletal: Denies arthralgias and Denies joint swelling Integumentary/Breasts: Skin/Breast: Denies rash Neurologic: Denies dizziness, Denies syncope and Denies headache(s) PMFSH Past Medical History Medical History No pertinent past medical history Surgical History Surgical History History of tympanostomy tube placement Family History Family History Father Alcohol abuse Sibling Asthma Social History Social History Social History: Patient feels somewhat confident filling out medical forms. Smoking packs per day: 0 Smoking cigarettes per day: 0.0 Years smoked: 0 Smoking pack-years: 0.00 Smoking status: Never smoker Second hand tobacco smoke exposure: No Alcohol intake: never Drinks per week: 0 Alcohol use details: Patient does not consume alcohol. Substance use: never Substance use type: does not use Do You Feel Safe in your Home?: Yes Lack of Transportation: No Lack of Food: Never True Current Housing: I Have Housing Concerned About Future Housing: No Difficulty Paying Gas/Electric Bills: No Difficulty Paying for Meds: No Currently Unemployed: No Education: High School Diploma/GED Living arrangements: with family Occupation/Education: occupation Additional occupation/education comments: [employer] Gender identity (if verbalized by the patient): Female Agree to blood products: Yes Comments At time of signature, I agree with nursing past medical, surgical, social and family history. There is no relevant family history pertinent to the presenting complaint. Exam Const: General: healthy appearing and no acute distress Nutritional Appearance: well nourished Orientation/consciousness: patient oriented x3 Limitations: no limitations HENMT: Head: normal to inspection Ears: external ears normal, TM's normal bilaterally and EAC's normal Face/Nose/Sinus: Normal external nose present Mouth: Yes Normal oral and palatal mucosa present, Yes lip normal and Yes moist mucous membranes Teeth and gingiva: dentition normal Other: Mild erythema noted to posterior tonsils. 1-2+ swelling noted to bilateral tonsils. There is no exudate or peritonsillar abscess noted. Eyes: Conjunctivae: conjunctivae normal Neck: Neck: normal visual inspection Resp: Effort & Inspection: normal respiratory effort and not labored Auscultation: clear to auscultation bilaterally, no crackles, no rales and no rhonchi Cardio: Rate: regular rate Rhythm: regular rhythm Heart sounds: no murmurs Skin: General skin exam: normal color Rashes: no rashes Neuro: General: patient oriented x3 and moves all extremities Speech: normal speech Gait exam (Neuro): Normal gait present Extrem: General: normal to inspection Psych: Affect: normal affect Attitude: cooperative Course Course Level of Care: Express Care Visit Vital Signs Vital signs: Vital Signs Temperature 36.8 C 06/10/24 17:47 Pulse Rate 85 06/10/24 17:47 Respiratory Rate 16 06/10/24 17:47 Blood Pressure 120/69 06/10/24 17:47 Pulse Oximetry 100 06/10/24 17:47 Oxygen Delivery Room Air 06/10/24 17:47 Temperature 36.8 C 06/10/24 17:47 Pulse Rate 85 06/10/24 17:47 Respiratory Rate 16 06/10/24 17:47 Blood Pressure 120/69 06/10/24 17:47 Pulse Oximetry 100 06/10/24 17:47 Oxygen Delivery Room Air 06/10/24 17:47 MDM - URI/Sore Throat MDM Narrative Medical decision making narrative: Discussed negative strep results with patient. Strep culture obtained and sent to lab. Patient agrees to alternate Motrin and Tylenol as needed. Patient agrees to complete warm saltwater gargles as needed for throat pain. Differential Diagnosis Differential diagnosis: Likely otitis media, sinusitis and viral infection Lab Data Labs: Lab Results 06/10/24 06/10/24 Range/Units 17:54 17:54 POC Grp A Strep Screen Negative Negative (Negative) Critical Care Time Critical Care Time Critical Care Time: No Discharge Plan Discharge Clinical Impression: Pharyngitis Qualifiers: Pharyngitis/tonsillitis etiology: unspecified etiology Qualified Code(s): J02.9 - Acute pharyngitis, unspecified Patient Disposition: Home, Self-Care Condition: Stable Instructions: Pharyngitis (ED) Additional Instructions: Warm saltwater gargles as needed for throat pain Alternate Motrin and Tylenol as needed Strep culture obtained and sent to lab --we will call you if an antibiotic is needed Follow-up with primary care provider if symptoms are improved Proceed to the emergency room if symptoms worsen Patient Language: Moroccan Prescriptions: No Action montelukast [Singulair] 10 mg tablet 10 mg PO DAILY budesonide-formoterol [Symbicort] 80-4.5 mcg/actuation HFA aerosol inhaler 2 puff inhalation Q12H fluticasone propionate 50 mcg/actuation spray,suspension 2 spray intranasal DAILY Rx Instructions: administer into each nostril azelastine 137 mcg (0.1 %) aerosol,spray 1 spray intranasal Q12H Rx Instructions: administer into each nostril cetirizine [Zyrtec] 10 mg tablet 10 mg PO DAILY multivitamin [Daily Multi-Vitamin] Tablet 1 tablet PO DAILY fluconazole 150 mg tablet 150 mg PO ONCE Qty: 1 0RF Rx Instructions: as a single dose Follow-up/Referrals: PHYSICIAN,IT HELP DESK ANALYST [Primary Care Provider] - Time of Disposition: 18:03
== END 2024-06-10 18:07 | disposition home or self-care (01) ==
PROVIDERS: Emergency Provider Nurse Practitioner Family
DX: J02.9 Acute pharyngitis, unspecified (principal)
CPT/HCPCS: 87081; 87880; 99213; G0463